=== PATIENT | male | born 1960 | race Caucasian/White ===

== ENCOUNTER 2017-04-03 12:20 | Emergency (ER) | payer MEDICAID, OTHER ==
[2017-04-03 12:29] VITALS: RESP 16; TEMP 97.7; O2SAT 97
[2017-04-03 13:15] LABS: BASO # 0.1 K/uL (0.0-0.2); BASO % 0.5 % (0.0-2.0); EOS # 0.1 K/uL (0.0-0.7); EOS % 0.8 % (0.0-4.0); HEMATOCRIT 39.6 % (35.0-51.0); LYMPH # 2.7 K/uL (1.0-4.3); LYMPH % 20.3 % (20.0-40.0); MEAN CELL VOLUME 90.9 fL (80.0-94.0); MEAN CORPUSCULAR HEMOGLOBIN 31.6 pg (27.0-31.0); MEAN CORPUSCULAR HGB CONC 34.8 g/dL (33.0-37.0); MEAN PLATELET VOLUME 8.8 fL (7.2-11.7); MONO # 0.9 K/uL (0.0-0.8); MONO % 6.9 % (0.0-10.0); RED CELL DISTRIBUTION WIDTH 13.1 % (11.5-14.5); WHITE BLOOD COUNT 13.2 K/uL (4.8-10.8)
[2017-04-03 13:41] LABS: RBC URINE 9 /hpf (0-3); URINE BILIRUBIN NEGATIVE (NEGATIVE); URINE BLOOD NEGATIVE (NEGATIVE); URINE COLOR Yellow (YELLOW); URINE GLUCOSE (UA) NORMAL (Normal); URINE KETONE NEGATIVE (NEGATIVE); URINE LEUKOCYTE ESTERASE NEG Leu/uL (Negative); URINE PROTEIN NEGATIVE (NEGATIVE); URINE UROBILINOGEN NORMAL mg/dL (0.2-1.0); WBC URINE < 1 /hpf (0-5)
[2017-04-03 13:44] LABS: CHLORIDE 99 mmol/L (98-107); POTASSIUM 5.1 mmol/L (3.6-5.2); SODIUM 140 mmol/L (132-148)
[2017-04-03 13:46] LABS: GFR AFRICAN-AMERICAN > 60
[2017-04-03 13:47] LABS: ALB/GLOB RATIO 1.3 (1.0-2.1); ALKALINE PHOSPHATASE 84 U/L (38-126); ALT/SGPT 86 U/L (21-72); AST/SGOT 159 U/L (17-59); BILIRUBIN,TOTAL 0.9 mg/dL (0.2-1.3); BLOOD UREA NITROGEN 17 mg/dL (9-20); CALCIUM 9.4 mg/dl (8.6-10.4); CARBON DIOXIDE 31 mmol/L (22-30); GLUCOSE,RANDOM 100 mg/dL (75-110); TOTAL PROTEIN 6.8 g/dL (6.3-8.3)
--- NOTE | 2017-04-03 14:09 | C.PDOC ---
History Of Present Illness 56 yr old male states he was diagnosed with Lupus 8 months ago, presents to the ER with complaints of neck pain, back pain and right flank pain. Patient states he lost his insurance and has not been able to follow up with the doctor or get his medicine. States the pain is worse after a long day of work when he wakes up in the morning. Patient states he is concerned about the progression of his Lupus. Denies fever, chills, chest pain, SOB, nausea, vomiting, weakness or numbness. Time Seen by Provider: 04/03/17 12:32 Chief Complaint (Nursing): Pain, Chronic History Per: Patient History/Exam Limitations: no limitations Onset/Duration Of Symptoms: Days Past Medical History Reviewed: Historical Data, Nursing Documentation, Vital Signs Vital Signs: Last Vital Signs Temp 97.7 F 04/03/17 12:26 Pulse 78 04/03/17 14:17 Resp 16 04/03/17 14:17 BP 136/84 04/03/17 14:17 Pulse Ox 97 04/03/17 14:13 Family History: States: No Known Family Hx - Social History Hx Alcohol Use: No Hx Substance Use: No Review Of Systems Except As Marked, All Systems Reviewed And Found Negative. Constitutional: Negative for: Fever, Chills Cardiovascular: Negative for: Chest Pain Respiratory: Negative for: Shortness of Breath Gastrointestinal: Negative for: Nausea, Vomiting Musculoskeletal: Positive for: Neck Pain, Back Pain Neurological: Negative for: Weakness, Numbness Physical Exam - Physical Exam Appears: Non-toxic, No Acute Distress Skin: Warm, Dry, No Rash Head: Atraumatic, Normacephalic Oral Mucosa: Moist Neck: Normal, Normal ROM, Supple Chest: Symmetrical, No Tenderness Cardiovascular: Rhythm Regular, No Murmur Respiratory: Normal Breath Sounds, No Rales, No Rhonchi, No Stridor, No Wheezing Gastrointestinal/Abdominal: Normal Exam, Soft, No Tenderness, No Guarding, No Rebound Back: Normal Inspection, No CVA Tenderness Extremity: Normal ROM, No Swelling Neurological/Psych: Oriented x3, Normal Speech, Normal Motor ED Course And Treatment - Laboratory Results Result Diagrams: 04/03/17 13:09 04/03/17 13:09 O2 Sat by Pulse Oximetry: 97 (RA ) Pulse Ox Interpretation: Normal Medical Decision Making Medical Decision Making: PLAN: * Drug Screen * CBC * CMP * Urinalysis Disposition Discussed With : Cristian Crystal Doctor Will See Patient In The: Hospital Counseled Patient/Family Regarding: Studies Performed, Diagnosis, Need For Followup - Disposition Referrals: [facility] [Outside] Disposition: HOME/ ROUTINE Disposition Time: 14:07 Condition: STABLE Additional Instructions: Follow up in [facility] clinic as soon as possible. Make sure to see Dr. Crystal. Return to the Emergency Department with any further concerns. Instructions: Autoimmune Disease (ED) Forms: [facility] ([place]), Work Excuse - POA Present On Arrival: None - Clinical Impression Clinical Impression: SLE (systemic lupus erythematosus)
[2017-04-03 14:18] VITALS: BP 136/84; PULSE 78
== END 2017-04-03 14:17 | disposition home or self-care (01) ==
LOC: C.ER 12:20
DX: M32.9 Systemic lupus erythematosus, unspecified (principal)